=== PATIENT | female | born 1990 | race Native Hawaiian/Other Pacific Islander ===

== ENCOUNTER 2018-08-08 07:54 | Emergency (ER) | payer OTHER ==
[2018-08-08] MEDS ORDERED: Sodium Chloride 0.9% 1,000 ML IV STA ×2 (08:19→11:37)
--- NOTE | 2018-08-08 08:23 | ED PDOC ---
HPI: Fever Time Seen by Provider: 08/08/18 07:56 What Antipyretic Given Prior To Arrival: Acetaminophen Did The Patient Have A Seizure Today: No Symptoms Associated With Fever: Other (Right breast pain) Additional Comments: 28 years old female brought to ER by EMS for evaluation of fever associated with right breast pain onset yesterday. Per EMS, patient has a fever of temperature 102.1 degrees. Patient reports having 3 weeks ago and is currently ? . Per , patient spoke to her OB-DIRECTOR OF COUNTERINTELLIGENCE yesterday about her symptoms, was diagnosed with mastitis, and was prescribed Dicloxacillin for infection. reports patient woke up around 6 am cold and shaking prompting ED visit. Patient reports experiencing dizziness before but denies having it at this time. She states she took Tylenol for fever and her last tab was at 7 am today with no relief. Patient reports pain is improved with pumping. She denies any abdominal pain, nausea, vomiting back pain, dysuria, vaginal bleeding or any other urinary symptoms. No cough, congestion, headaches. No dysuria. No abd pain. OB-DIRECTOR OF COUNTERINTELLIGENCE: Dr. Strickland in [place] Past Medical History Reviewed: Historical Data, Nursing Documentation, Vital Signs Vital Signs: Last Vital Signs Temp 102.1 F H 08/08/18 07:58 Pulse 124 H 08/08/18 07:58 Resp 16 08/08/18 07:58 BP 79/44 L 08/08/18 07:58 Pulse Ox 94 L 08/08/18 07:58 - Medical History PMH: No Chronic Diseases - Surgical History Surgical History: - Family History Family History: States: Unknown Family Hx - Social History Current smoker - smoking cessation education provided: No Alcohol: None Drugs: Denies - Home Medications Home Medications: Ambulatory Orders Medication Instructions Recorded Nitrofurantoin Macrocrystals 100 mg PO BID #10 cap 08/08/18 [Macrobid] - Allergies Allergies/Adverse Reactions: Allergies Allergy/AdvReac Type Severity Reaction Status Date / Time cephalexin [From Keflex] Allergy SWELLING Verified 08/08/18 08:08 cobalt Allergy RASH Verified 04/21/16 20:32 sorbitan sesquioleate Allergy RASH Verified 04/21/16 20:32 [From Polysorb Hydrate] thimerosal Allergy RASH Verified 04/21/16 20:33 Review of Systems ROS Statement: Except As Marked, All Systems Reviewed And Found Negative Constitutional: Positive for: Fever Gastrointestinal: Negative for: Nausea, Vomiting, Abdominal Pain Genitourinary Female: Negative for: Dysuria, Vaginal Bleeding Musculoskeletal: Positive for: Other (breast pain). Negative for: Back Pain Neurological: Negative for: Dizziness Physical Exam - Reviewed Nursing Documentation Reviewed: Yes Vital Signs Reviewed: Yes - Physical Exam Appears: Positive for: Non-toxic, No Acute Distress Head Exam: Positive for: ATRAUMATIC, NORMOCEPHALIC Skin: Positive for: Normal Color, Dry Neck: Positive for: Normal, Painless ROM, Supple Cardiovascular/Chest: Positive for: Regular Rate, Rhythm, Other (Mild tenderness to right breast at 8 o'clock with trace of erythema. No induration, fluctuance, or nipple discharge. Milk coming out on nipple stimulation. Sofya nurse was mule packer along with scribe.). Negative for: Murmur Respiratory: Positive for: Normal Breath Sounds. Negative for: Wheezing Gastrointestinal/Abdominal: Positive for: Normal Exam, Soft, Other ( site healed and nontender; no dc or erythema). Negative for: Tenderness Back: Positive for: Normal Inspection. Negative for: L CVA Tenderness, R CVA Tenderness Extremity: Positive for: Normal ROM. Negative for: Pedal Edema, Deformity Neurologic/Psych: Positive for: Alert, Oriented (x3) - Laboratory Results Result Diagrams: 08/08/18 08:40 08/08/18 10:20 Interpretation Of Abn Labs: no acute - ECG ECG: Positive for: Interpreted By Me, Viewed By Me ECG Rhythm: Positive for: Normal QRS, Normal ST Segment, Sinus Rhythm O2 Sat by Pulse Oximetry: 94 (RA) - Radiology X-Ray: Interpreted by Me, Viewed By Me X-Ray Interpretation: No Acute Disease - Progress ED Course And Treament: 1327: Feels much better. AAOx3. States bp usually 90/50. Not dizzy. No pain. Fu with pcp. Continue antibiotics for mastitis. Will rx for uti. Medical Decision Making Medical Decision Making: Time: 818 Initial Plan: --VBG Shock --EKG --CMP --Magnesium --Phosphorous --CBC --PTT --PT --Chest x-ray --Motrin 600 mg PO --NaCl 1,000 ml IV --Blood culture -- Urine culture --Urinalysis The nurse, Sofya, was present as a gift officer during exam. Scribe Attestation: Documented by Brianna Coe, acting as a scribe for John Medina MD. Provider Scribe Attestation: All medical record entries made by the Scribe were at my direction and personally dictated by me. I have reviewed the chart and agree that the record accurately reflects my personal performance of the history, physical exam, medical decision making, and the department course for this patient. I have also personally directed, reviewed, and agree with the discharge instructions and disposition. Disposition - Clinical Impression Clinical Impression: Mastitis, UTI (urinary tract infection) - Patient ED Disposition Is Patient to be Admitted: No - Disposition Referrals: [facility] [Outside] - 08/[facility]/18 [facility] - 08/[facility]/18 Disposition: Routine/Home Disposition Time: 13:28 Condition: STABLE Additional Instructions: Return if not better in 3 days. Prescriptions: Nitrofurantoin Macrocrystals [Macrobid] 100 mg PO BID #10 cap Instructions: Mastitis, Urinary Tract Infection, Adult (DC) Forms: [email or web address] (Romanian)
[2018-08-08 08:47] LABS: VENOUS BLOOD GAS BASE EXCESS 0.7 mmol/L (0.0-2.0); VENOUS BLOOD GAS PCO2 36 mmHg (40-60); VENOUS BLOOD GAS PO2 34 mm/Hg (30-55); VENOUS BLOOD PH 7.44 (7.32-7.43)
[2018-08-08 08:50] LABS: BASO % 0.1 % (0.0-2.0); EOS % 0.1 % (0.0-4.0); HEMOGLOBIN 13.9 g/dL (12.0-16.0); LYMPH # 0.9 K/uL (1.0-4.3); LYMPH % 8.2 % (20.0-40.0); MEAN CORPUSCULAR HEMOGLOBIN 32.6 pg (27.0-31.0); MEAN CORPUSCULAR HGB CONC 33.6 g/dL (33.0-37.0); MEAN PLATELET VOLUME 8.6 fl (7.2-11.7); MONO # 0.9 K/uL (0.0-0.8); MONO % 8.1 % (0.0-10.0); NEUT # 9.3 K/uL (1.8-7.0); NEUT % 83.5 % (50.0-75.0); NRBC % 0.1 % (0.0-0.0); PLATELET COUNT 276 K/uL (130-400); RBC 4.26 Mil/uL (3.80-5.20); RED CELL DISTRIBUTION WIDTH 13.1 % (11.5-14.5); WHITE BLOOD COUNT 11.1 K/uL (4.8-10.8)
[2018-08-08 08:57] LABS: INR 1.1; PROTHROMBIN TIME 12.6 Seconds (9.8-13.1)
[2018-08-08 09:00] LABS: PARTIAL THROMBOPLASTIN TIME 32.3 Seconds (25.6-37.1)
[2018-08-08 10:43] LABS: ALB/GLOB RATIO 1.2 (1.0-2.1); ALBUMIN 3.4 g/dL (3.5-5.0); ALT/SGPT 39 U/L (9-52); AST/SGOT 27 U/L (14-36); BLOOD UREA NITROGEN 16 mg/dl (7-17); CALCIUM 7.9 mg/dL (8.4-10.2); GFR NON-AFRICAN AMERICAN > 60
[2018-08-08 10:57] LABS: BANDS 5 % (0-2); LYMPHOCYTE 11 % (20-50); MONOCYTE 8 % (0-10); NEUTROPHIL 76 % (42-75); PLATELET ESTIMATE NORMAL (NORMAL); TOTAL CELLS COUNTED 100
[2018-08-08 10:58] LABS: LARGE PLATELETS PRESENT; TOXIC GRANULATION PRESENT
[2018-08-08 11:33] VITALS: TEMP 99.6
[2018-08-08 11:37] VITALS: O2SAT 94
[2018-08-08 12:02] LABS: URINE BACTERIA RARE (<OCC); URINE BILIRUBIN NEGATIVE (NEGATIVE); URINE BLOOD LARGE (NEGATIVE); URINE CLARITY CLOUDY (Clear); URINE COLOR YELLOW (YELLOW); URINE GLUCOSE (UA) NEG (Normal); URINE HYALINE CAST 0-2 /hpf (0-2); URINE LEUKOCYTE ESTERASE TRACE Leu/uL (Negative); URINE PROTEIN NEGATIVE (NEGATIVE); URINE UROBILINOGEN 0.2-1.0 mg/dL (0.2-1.0)
--- NOTE | 2018-08-08 12:57 | RAD ---
Date of service: 08/08/2018 HISTORY: Sepsis Patient COMPARISON: No prior. FINDINGS: LUNGS: No active pulmonary disease. PLEURA: No significant pleural effusion identified, no pneumothorax apparent. CARDIOVASCULAR: No atherosclerotic calcification present Normal. OSSEOUS STRUCTURES: No significant abnormalities. VISUALIZED UPPER ABDOMEN: Normal. OTHER FINDINGS: None. IMPRESSION: No active disease. Concordant results with the preliminary interpretation rendered by the emergency department physician procedure.
[2018-08-08 13:17] VITALS: BP 90/49; PULSE 68; RESP 16
--- NOTE | 2018-08-09 07:02 | CARD ---
APPROVED REPORT Date of service: 08/08/2018 EKG Measurement Heart [id number] <Conclusion> Normal sinus rhythm Low voltage QRS Nonspecific T wave abnormality Abnormal ECG
== END 2018-08-08 13:51 | disposition home or self-care (01) ==
LOC: H.ER 07:54 → SUPCPDRO 07:54 → H.ER 13:51
DX: N61.0 Mastitis without abscess (principal); N39.0 Urinary tract infection, site not specified
CPT/HCPCS: 71045; 80053; 81003; 81025; 82803; 82948; 83735; 84100; 85025; 85610; 85730; 87040; 87086; 87181; 93005; 99285; J7030